=== PATIENT | female | born 1970 | race Caucasian/White ===

== ENCOUNTER 2021-01-02 17:02 | Observation (INO) ==
[2021-01-02] MEDS ORDERED: EPINEPHrine INJ 1 MG/ML AMP ONE (17:06)
[2021-01-02] MEDS ORDERED: FAMOTIDINE 20MG/5ML IV PUSH IV STA (17:09)
[2021-01-02] MEDS ORDERED: methylPREDNISolone 125 MG/2 ML VIAL IV STA (17:09)
[2021-01-02 17:29] LABS: Hematocrit (blood only) 38.8 % (37-47); Mean Corpuscular Hemoglobin 32.4 pg (25-34); Mean Corpuscular Hgb Conc 33.5 g/dL (32-36); Mean Corpuscular Volume 96.8 fL (80-100); Mean Platelet Volume 8.8 fL (7.4-10.4); Platelet Count 302 K/uL (130-400); RDW Coefficient of Variation 13.2 % (11.5-14.5); RDW Standard Deviation 46.9 fL (36.4-46.3); Red Blood Count 4.01 M/uL (4.2-5.4); White Blood Count 12.08 K/uL (4.8-10.8)
--- NOTE | 2021-01-02 17:38 | XRay Report ---
XR chest 1V portable CLINICAL HISTORY: Chest Pain COMPARISON STUDY: No previous studies for comparison. FINDINGS: No pneumothorax. No pleural effusion. No large infiltrates or consolidative lesions are seen. Cardiomediastinal silhouette is within normal limits in size. No significant pulmonary vascular congestion.. Osseous structures: unremarkable IMPRESSION: 1. No acute pulmonary process. ACT 112: Negative or not required by law. The above report was generated using voice recognition software. It may contain grammatical, syntax o r spelling errors. Electronically signed by: Sirisha Deng DO 01/02/2021 5:37 PM
[2021-01-02 17:39] LABS: Partial Thromboplastin Ratio 0.9; Partial Thromboplastin Time 22.9 Seconds (21.0-31.0)
[2021-01-02 17:47] LABS: Alanine Aminotransferase 17 U/L (12-78); Albumin Level 3.1 gm/dl (3.4-5.0); Aspartate Aminotransferase 16 U/L (15-37); BUN Creatinine Ratio 18.1 (10-20); Blood Urea Nitrogen 22 mg/dl (7-18); Calcium 8.5 mg/dl (8.5-10.1); Carbon Dioxide 22 mmol/L (21-32); Chloride 113 mmol/L (98-107); Est GFR (African American) 61.6 ml/min; Est GFR (Non-African American) 53.2 ml/min; Glucose 170 mg/dl (70-99); Lipase 141 U/L (73-393); Potassium 3.2 mmol/L (3.5-5.1); Sodium 141 mmol/L (136-145)
[2021-01-02 17:51] LABS: Alkaline Phosphatase 66 U/L (45-117); Bilirubin,Total 0.4 mg/dl (0.2-1); Total Protein 6.1 gm/dl (6.4-8.2); Troponin I < 0.015 ng/ml (0-0.045)
[2021-01-02 18:06] LABS: Basophils # (auto) 0.01 K/uL (0-0.2); Basophils % (auto) 0.1 %; Eosinophils # (auto) 0.07 K/uL (0-0.5); Eosinophils % (auto) 0.6 %; Immature Granulocytes # (auto) 0.02 K/uL (0.00-0.02); Immature Granulocytes % (auto) 0.2 %; Lymphocytes # (auto) 7.07 K/uL (1.2-3.4); Lymphocytes % (auto) 58.5 %; Monocytes # (auto) 0.31 K/uL (0.11-0.59); Monocytes % (auto) 2.6 %
--- NOTE | 2021-01-02 18:15 | Emergency Department Note ---
History of Present Illness General Chief complaint: Allergic Reaction Stated complaint: ALLERGIC REACTION Source: patient, EMS and old records reviewed Mode of arrival: EMS Limitations: no limitations History of Present Illness This patient is a 50-year-old female was brought in by EMS after having a bee sting and allergic reaction. She was placed in room B1. The nurses got me to see her immediately. When I went and she was very somnolent. She apparently was stung on the left lower lip about 1/2-hour or so prior to arrival they did give her epi IM. They also gave her Benadryl 50 mg IV and she had had 25 Benadryl prior to that. There are no steroids given. They feel that she is got more somnolent. The patient is sleepy and opens her eyes but falls back to sleep. Unable to give reliable history initially Home Medications Medication Instructions Recorded Confirmed Type acetaminophen 325 mg tablet 650 mg PO DIRECTED PRN 01/02/21 01/02/21 History (Tylenol) diphenhydramine HCl 25 mg capsule 25 mg PO DIRECTED PRN 01/02/21 01/02/21 History (Benadryl) Allergies Allergy/AdvReac Type Severity Reaction Status Date / Time No Known Allergies Allergy Verified 01/02/21 18:20 Past Med/Surg History Social History Smoking Status: Unknown if ever smoked Feels Safe at Home: Yes Immunizations: Past medical historydenies any significant past medical history Social historyher doctor retired she used to see Dr. Rosas Review of Systems Unobtainable due to reduced consciousness Physical Exam Vital Signs Vital Signs - 24 hr 01/02/21 17:07 01/02/21 17:13 01/02/21 17:20 Temperature Temperature Source Pulse Rate 107 H 100 H 89 Pulse Rate [Radial] Pulse Rate from SpO2 Sensor 107 H 99 H 90 Pulse Rhythm Pulse Strength Respiratory Rate 23 23 22 Respiratory Effort / Characteristics Respiratory Depth Respiratory Pattern Blood Pressure 102/60 104/67 95/66 L Blood Pressure [Left Arm] Blood Pressure Mean 74 79 75 Blood Pressure Mean [Left Arm] Blood Pressure Position Pulse Oximetry 95 93 96 Oxygen Delivery Method Non-rebreather Non-rebreather Non-rebreather Oxygen Flow Rate 15 15 15 Sepsis Recent Fever Within 48 Hours Sepsis New/Unexplained Change in Mental Status Sepsis Action Taken by Nursing 01/02/21 17:23 01/02/21 17:24 01/02/21 17:30 Temperature 37 C Temperature Source Oral Pulse Rate 106 H 71 Pulse Rate [Radial] Pulse Rate from SpO2 Sensor 79 Pulse Rhythm Regular Pulse Strength Normal Respiratory Rate 28 H 23 Respiratory Effort / Characteristics Short of Breath Non-Labored Spontaneous Respiratory Depth Shallow Normal Respiratory Pattern Tachypnea Regular Blood Pressure 102/60 114/72 Blood Pressure [Left Arm] Blood Pressure Mean 74 86 Blood Pressure Mean [Left Arm] Blood Pressure Position Sitting Pulse Oximetry 95 98 98 Oxygen Delivery Method Non-rebreather Oxymask Non-rebreather Oxygen Flow Rate 12 15 Sepsis Recent Fever Within 48 Hours No Sepsis New/Unexplained Change in Mental Status N/A Sepsis Action Taken by Nursing Physician Notified 01/02/21 17:32 01/02/21 17:41 01/02/21 17:51 Temperature Temperature Source Pulse Rate 80 101 H Pulse Rate [Radial] 76 Pulse Rate from SpO2 Sensor 76 93 H Pulse Rhythm Pulse Strength Respiratory Rate 18 23 15 Respiratory Effort / Characteristics Non-Labored Respiratory Depth Normal Respiratory Pattern Regular Blood Pressure 107/59 L 128/66 Blood Pressure [Left Arm] 104/72 Blood Pressure Mean 75 86 Blood Pressure Mean [Left Arm] 82 Blood Pressure Position Pulse Oximetry 97 99 96 Oxygen Delivery Method Non-rebreather Oxygen Flow Rate 15 Sepsis Recent Fever Within 48 Hours Sepsis New/Unexplained Change in Mental Status Sepsis Action Taken by Nursing 01/02/21 17:52 01/02/21 18:00 01/02/21 18:11 Temperature Temperature Source Pulse Rate 99 H 98 H Pulse Rate [Radial] 96 H Pulse Rate from SpO2 Sensor 97 H 98 H Pulse Rhythm Pulse Strength Respiratory Rate 16 18 24 Respiratory Effort / Characteristics Non-Labored Respiratory Depth Normal Respiratory Pattern Regular Blood Pressure 107/72 111/69 Blood Pressure [Left Arm] 128/65 Blood Pressure Mean 83 83 Blood Pressure Mean [Left Arm] 86 Blood Pressure Position Pulse Oximetry 97 100 100 Oxygen Delivery Method Non-rebreather Oxygen Flow Rate Sepsis Recent Fever Within 48 Hours Sepsis New/Unexplained Change in Mental Status Sepsis Action Taken by Nursing 01/02/21 18:23 01/02/21 18:31 01/02/21 18:41 Temperature Temperature Source Pulse Rate 78 67 76 Pulse Rate [Radial] Pulse Rate from SpO2 Sensor 81 77 76 Pulse Rhythm Pulse Strength Respiratory Rate 19 26 H 16 Respiratory Effort / Characteristics Respiratory Depth Respiratory Pattern Blood Pressure 89/69 L 111/62 Blood Pressure [Left Arm] Blood Pressure Mean 75 78 Blood Pressure Mean [Left Arm] Blood Pressure Position Pulse Oximetry 100 100 100 Oxygen Delivery Method Oxygen Flow Rate Sepsis Recent Fever Within 48 Hours Sepsis New/Unexplained Change in Mental Status Sepsis Action Taken by Nursing 01/02/21 18:50 01/02/21 19:00 01/02/21 19:02 Temperature Temperature Source Pulse Rate 88 98 H Pulse Rate [Radial] 91 H Pulse Rate from SpO2 Sensor 86 101 H Pulse Rhythm Pulse Strength Respiratory Rate 20 17 16 Respiratory Effort / Characteristics Respiratory Depth Respiratory Pattern Blood Pressure 125/68 80/56 L Blood Pressure [Left Arm] 108/75 Blood Pressure Mean 87 64 Blood Pressure Mean [Left Arm] 86 Blood Pressure Position Pulse Oximetry 100 98 98 Oxygen Delivery Method Nasal Cannula Oxygen Flow Rate 3 Sepsis Recent Fever Within 48 Hours Sepsis New/Unexplained Change in Mental Status Sepsis Action Taken by Nursing 01/02/21 19:10 01/02/21 19:20 01/02/21 19:30 Temperature Temperature Source Pulse Rate 93 H 93 H 86 Pulse Rate [Radial] Pulse Rate from SpO2 Sensor 90 94 H 87 Pulse Rhythm Pulse Strength Respiratory Rate 16 19 18 Respiratory Effort / Characteristics Respiratory Depth Respiratory Pattern Blood Pressure 115/75 108/75 121/76 Blood Pressure [Left Arm] Blood Pressure Mean 88 86 91 Blood Pressure Mean [Left Arm] Blood Pressure Position Pulse Oximetry 100 99 99 Oxygen Delivery Method Nasal Cannula Oxygen Flow Rate 3 Sepsis Recent Fever Within 48 Hours Sepsis New/Unexplained Change in Mental Status Sepsis Action Taken by Nursing 01/02/21 19:40 01/02/21 19:51 01/02/21 20:00 Temperature Temperature Source Pulse Rate 74 78 83 Pulse Rate [Radial] Pulse Rate from SpO2 Sensor 76 82 82 Pulse Rhythm Pulse Strength Respiratory Rate 17 17 17 Respiratory Effort / Characteristics Respiratory Depth Respiratory Pattern Blood Pressure 110/72 116/71 108/80 Blood Pressure [Left Arm] Blood Pressure Mean 84 86 89 Blood Pressure Mean [Left Arm] Blood Pressure Position Pulse Oximetry 98 97 97 Oxygen Delivery Method Nasal Cannula Nasal Cannula Nasal Cannula Oxygen Flow Rate 3 2 2 Sepsis Recent Fever Within 48 Hours Sepsis New/Unexplained Change in Mental Status Sepsis Action Taken by Nursing General: Well developed well nourished slender middle-aged female who is somnolent with oxygen on but in no acute respiratory. To stimuli she will open her eyes and go back to sleep. She has diffuse red rash mostly on her torso and extremities HEENT: Normal cephalic atraumatic. Pupils are equal round and reactive to light. Extraocular movements are intact. Oropharynx is pink with moist mucous membranes. No swelling of the mouth lips or tongue. The area she got stung on the lower lip is not secondarily swollen. The posterior pharynx is wide open without any swelling. The tongue is not swollen the cheeks and the rest of the mouth are not swollen. Neck: Supple with a midline trachea. No meningeal signs or stiffness, no JVD or bruits. No Stridor. Chest: Clear to auscultation bilaterally. No wheezes or rhonchi. No increased work of breathing. Heart: Regular rate and rhythm without murmurs or gallops. Abdomen: Soft nontender, nondistended without rebound guarding or rigidity. Extremities: No cyanosis clubbing or edema. No calf tenderness or assymetry Spine/Back. Non tender to palpation. No CVA tenderness Skin: Good turgor. Red diffuse rash on the skin Neurologic exam: Cranial nerves two through 12 are intact. Motor and sensation are intact and symmetrical throughout. Course Administered Medications Discontinued Medications Epinephrine HCl (Epinephrine Inj 1 Mg/Ml Amp) Confirm Administered Dose 1 mg .ROUTE .STK-MED ONE Stop: 01/02/21 17:07 Last Admin: 01/02/21 17:08 Dose: 0.3 mg Documented by: [id number] Famotidine (Famotidine 20mg/5ml Iv Push) 20 mg IV NOW STA Stop: 01/02/21 17:10 Last Admin: 01/02/21 17:14 Dose: 20 mg Documented by: [id number] Methylprednisolone (Methylprednisolone 125 Mg/2 Ml Vial) 125 mg IV NOW STA Stop: 01/02/21 17:10 Last Admin: 01/02/21 17:14 Dose: 125 mg Documented by: [id number] Critical Care Time Critical Care Time: Yes Total Critical Care Time: 45 Due to the patient's allergic reaction and need for multiple medications, frequent airway and vital sign reassessment and further treatment and evaluation and consultation, I have personally spent greater than 45 minutes of critical care time in the direct management of this patient. This includes bedside care, interpretation of diagnostic studies, and testing, discussion with consultants, patient, and family members, and other required patient management activities. This 45 minutes is in excess of all separately billable procedures. Medical Decision Making Differential Diagnosis Allergic reaction, anaphylaxis, airway compromise, medication side effect, respiratory distress Home Medications Current Medication List: was personally reviewed by me Laboratory Data Attestation: I reviewed the patient's lab results. Result diagrams: 01/02/21 17:19 01/02/21 17:19 Lab Results 01/02/21 01/02/21 01/02/21 Range/Units 17:10 17:19 17:19 WBC 12.08 H (4.8-10.8) K/uL RBC 4.01 L (4.2-5.4) M/uL Hgb 13.0 (12.0-16.0) g/dL Hct 38.8 (37-47) % MCV 96.8 (80-100) fL MCH 32.4 (25-34) pg MCHC 33.5 (32-36) g/dL RDW Std Deviation 46.9 H (36.4-46.3) fL RDW Coeff of Faustino 13.2 (11.5-14.5) % Plt Count 302 (130-400) K/uL MPV 8.8 (7.4-10.4) fL Immature Gran % (Auto) 0.2 % Neut % (Auto) 38.0 % Lymph % (Auto) 58.5 % [place] % (Auto) 2.6 % Eos % (Auto) 0.6 % Baso % (Auto) 0.1 % Neut # (Auto) 4.60 (1.4-6.5) K/uL Lymph # (Auto) 7.07 H (1.2-3.4) K/uL [place] # (Auto) 0.31 (0.11-0.59) K/uL Eos # (Auto) 0.07 (0-0.5) K/uL Baso # (Auto) 0.01 (0-0.2) K/uL Immature Gran # (Auto) 0.02 (0.00-0.02) K/uL APTT 22.9 (21.0-31.0) Seconds PTT Ratio 0.9 Sodium (136-145) mmol/L Potassium (3.5-5.1) mmol/L Chloride (98-107) mmol/L Carbon Dioxide (21-32) mmol/L Anion Gap (3-11) BUN (7-18) mg/dl Creatinine (0.6-1.2) mg/dl Est Cr Clr Drug Dosing Est GFR ( Amer) ml/min Est GFR (Non-Af Amer) ml/min BUN/Creatinine Ratio (10-20) Glucose (70-99) mg/dl POC Glucose 156 H (70-99) mg/dl Calcium (8.5-10.1) mg/dl Total Bilirubin (0.2-1) mg/dl AST (15-37) U/L ALT (12-78) U/L Alkaline Phosphatase (45-117) U/L Troponin I (0-0.045) ng/ml Total Protein (6.4-8.2) gm/dl Albumin (3.4-5.0) gm/dl Globulin (2.5-4.0) gm/dl Albumin/Globulin Ratio (0.9-2) Lipase (73-393) U/L COVID-19 Eval Order SARS-CoV-2 (PCR) (Negative) 01/02/21 01/02/21 01/02/21 Range/Units 17:19 18:40 18:40 WBC (4.8-10.8) K/uL RBC (4.2-5.4) M/uL Hgb (12.0-16.0) g/dL Hct (37-47) % MCV (80-100) fL MCH (25-34) pg MCHC (32-36) g/dL RDW Std Deviation (36.4-46.3) fL RDW Coeff of Faustino (11.5-14.5) % Plt Count (130-400) K/uL MPV (7.4-10.4) fL Immature Gran % (Auto) % Neut % (Auto) % Lymph % (Auto) % [place] % (Auto) % Eos % (Auto) % Baso % (Auto) % Neut # (Auto) (1.4-6.5) K/uL Lymph # (Auto) (1.2-3.4) K/uL [place] # (Auto) (0.11-0.59) K/uL Eos # (Auto) (0-0.5) K/uL Baso # (Auto) (0-0.2) K/uL Immature Gran # (Auto) (0.00-0.02) K/uL APTT (21.0-31.0) Seconds PTT Ratio Sodium 141 (136-145) mmol/L Potassium 3.2 L (3.5-5.1) mmol/L Chloride 113 H (98-107) mmol/L Carbon Dioxide 22 (21-32) mmol/L Anion Gap 6.0 (3-11) BUN 22 H (7-18) mg/dl Creatinine 1.19 (0.6-1.2) mg/dl Est Cr Clr Drug Dosing Not Reportable Est GFR ( Amer) 61.6 ml/min Est GFR (Non-Af Amer) 53.2 ml/min BUN/Creatinine Ratio 18.1 (10-20) Glucose 170 H (70-99) mg/dl POC Glucose (70-99) mg/dl Calcium 8.5 (8.5-10.1) mg/dl Total Bilirubin 0.4 (0.2-1) mg/dl AST 16 (15-37) U/L ALT 17 (12-78) U/L Alkaline Phosphatase 66 (45-117) U/L Troponin I < 0.015 (0-0.045) ng/ml Total Protein 6.1 L (6.4-8.2) gm/dl Albumin 3.1 L (3.4-5.0) gm/dl Globulin 3.0 (2.5-4.0) gm/dl Albumin/Globulin Ratio 1.0 (0.9-2) Lipase 141 (73-393) U/L COVID-19 Eval Order Covid19 at [facility] SARS-CoV-2 (PCR) NEGATIVE (Negative) Imaging Data Attestation: I personally reviewed and interpreted this imaging study as follo ws: My Impression: Chest x-rayno acute infiltrate, failure, pneumothorax seen Radiologist's Impression: Chest X-Ray 01/02/21 17:11 XR chest 1V portable CLINICAL HISTORY: Chest Pain COMPARISON STUDY: No previous studies for comparison. FINDINGS: No pneumothorax. No pleural effusion. No large infiltrates or consolidative lesions are seen. Cardiomediastinal silhouette is within normal limits in size. No significant pulmonary vascular congestion.. Osseous structures: unremarkable IMPRESSION: 1. No acute pulmonary process. ACT 112: Negative or not required by law. The above report was generated using voice recognition software. It may contain grammatical, syntax or spelling errors. Electronically signed by: Sirisha Deng DO 01/02/2021 5:37 PM ECG Data Attestation: I personally reviewed and interpreted this ECG as follows: Indication: + SOB/dyspnea Rhythm: + sinus tachycardia ECG Intervals/blocks: + Normal QRS, + Normal QT and + Normal NM ECG [place]: + Normal ECG ST segments: + Normal ST segments ECG Findings: no PACs or no PVCs Comparison ECG Date: no prior available MDM Narrative This patient comes in as described above. The nurse came and got me to see her as she was ill-appearing. She seemed very somnolent. She was given a second dose of epinephrine IM. She was also given Solu-Medrol 125 mg IV as well as Pepcid. She was observed in the ER and significantly improved. She was awake. I reevaluate her airway multiple times and she had no small of the mouth lips or tongue with exception of a small area in the left lower lip where she was stung there is no posterior oropharyngeal swelling stridor or wheezes. Blood work was unremarkable x-ray was unremarkable. She was given IV fluid boluses and she improved significantly I do think she needs the observed in the hospital given her significant allergic reaction that required 2 doses of epinephrine. The patient's mental status improved and she remained stable she had no airway issues chest pain shortness of breath or abdominal pain. [facility] for these measures. Continuous cardiac monitoring: Orders placed in EMR for continuous cardiac monitoring. Upon my interpretation the patient was noted to be in sinus tachycardia with a weight of 105. Impression & Plan Allergic reaction, Anaphylaxis, Bee sting, Lab test negative for COVID-19 virus Discharge Plan Visit Data Chief Complaint: Allergic Reaction Stated Complaint: ALLERGIC REACTION ED Provider: Sedrick Arzate Discharge Problem: Allergic reaction, Anaphylaxis, Bee sting, Lab test negative for COVID-19 virus Forms Stand Alone Forms: My [facility] Prescriptions Prescriptions: No Action acetaminophen [Tylenol] 325 mg Tablet 650 mg PO DIRECTED PRN (Reason: Pain) RF: 0 diphenhydramine HCl [Benadryl] 25 mg Capsule 25 mg PO DIRECTED PRN (Reason: Allergic Reaction) RF: 0 Referrals Referrals: Pablo Weiss [Staff Physician] - Discharge Problem: Allergic reaction Qualifiers: Encounter type: initial encounter Qualified Code(s): T78.40XA - Allergy, unspecified, initial encounter Anaphylaxis Qualifiers: Encounter type: initial encounter Qualified Code(s): T78.2XXA - Anaphylactic shock, unspecified, initial encounter Bee sting Qualifiers: Encounter type: initial encounter Injury intent: accidental or unintentional Qualified Code(s): T63.441A - Toxic effect of venom of bees, accidental (unintentional), initial encounter
[2021-01-02] MEDS ORDERED: ACETAMINOPHEN 325 MG TAB PO STA (18:31)
--- NOTE | 2021-01-02 20:13 | History & Physical Report ---
Date of Service January 02, 2021 Assessment & Plan (1) Anaphylaxis: Plan: Patient is a 50 year old female who denies any PMHx that presents after SOB shortly after a bee sting to her L lower lip requiring PO Benadryl 25mg IV Benadryl 50mg, and epinephrine injection en-route to the ED. Anaphylaxis secondary to bee sting -Allergic reaction with suspected anaphylaxis to bee venom while at work -Received IV epinephrine x2, PO Benadryl 25mg x1, IV Benadryl 50mg x1, IV Famotidine 20mg x1, IV Methylprednisolone 125mg x1 -Will continue on Methylprednisolone 60mg q8h -PRN Benadryl for worsening symptoms -Continue Famotidine 20mg BID Hx Alcohol use disorder -Alcohol use history of 6 pack daily -Last drink 1:30AM on 01/01/21 -Will place on AWSS protocol with ativan pushes PRN -If requiring multiple doses of IV ativan will consider scheduled treatment -B12 and Folate levels Nicotine Dependance -Consider nicotine patch PRN Hypokalemia -K 3.2 on admission -Will give 20meq KCl now -IVF with NSS +20meq KCl x1L Dispo: Med/Surg telemetry for monitoring post epinephrine use for anaphylaxis FEN: NSS +20meq KCl x1L, Regular diet DVT: SCDs Code: Full History of Present Illness Chief Complaint: bee sting Primary Care Provider: NO PCP Patient is a 50 year old female who denies any PMHx that presents after SOB shortly after a bee sting to her L lower lip requiring PO Benadryl 25mg IV Benadryl 50mg, and epinephrine injection en-route to the ED. Patient note that she was at work when she was stung by a bee on her bottom L lip around 4PM. She noted immediate pain and swelling, but became more worried when she started feeling more short of breath and nauseous. She states that her boss gave her a Benadryl tablet immediately and EMS services were called. She as given Benadryl 50mg IV and an epinephrine injection on the EMS ride to the ED. In the ED patient received a second epinephrine injection in addition to solu-medrol 125mg IV and 20mg IV pepcid. Patient denies any history of allergy to bees. She currently notes that she primarily feels sleepy and slightly nauseous, however, she has no issues with her breathing. Denies any fever, chills, SOB, chest pain, chest pressure, abdominal pain. Med Hx: None per patient Surg Hx: Vocal cord polyp removal Soc Hx: Notes smoking 1 PPD x30 years, Drinks roughly a 6pack of beer daily, Uses marijuana, crystal meth, and cocaine. Last marijuana use 2PM. Last Crystal meth use overnight. Last cocaine use 4-5 years ago. Notes alcohol withdrawal once in 2007 when she was in retirement - no seizures or DTs at that time. Allergies Allergy/AdvReac Type Severity Reaction Status Date / Time bee venom protein (honey bee) Allergy Severe Anaphylaxis Verified 01/02/21 21:10 Home Medications Medication Instructions Recorded Confirmed Type acetaminophen 325 mg tablet 650 mg PO DIRECTED PRN 01/02/21 01/02/21 History (Tylenol) diphenhydramine HCl 25 mg capsule 25 mg PO DIRECTED PRN 01/02/21 01/02/21 History (Benadryl) epinephrine 0.3 mg/0.3 mL 0.3 mg IM Q4H PRN #2 ea 01/03/21 Rx injection, auto-injector (EpiPen 2-Clay) prednisone 10 mg tablets in a dose 10 mg PO DIRECTED #21 ea 01/03/21 Rx pack Past Med/Surg History Social History Smoking Status: Current every day smoker Second Hand Exposure: No; Do You Dip or Chew Tobacco: No; Tobacco Cessation Education Requested by Patient: No Hx Alcohol Use: Yes Alcohol type: beer Hx Substance Use: Yes Preferred Language: Mohawk Communication Ability: Effective Industrial 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 Beliefs That Will Affect Care: None Current Living Situation: Spouse Other Information That Helps Us Care for You: No Feels Safe at Home: Yes Safety Concerns: Feels Safe At This Time Assistive Devices: None Review of Systems Review of Systems: All systems reviewed & are unremarkable except as noted in Subjective Physical Exam Constitutional: well developed and well nourished; no acute distress Tired appearing, but responsive and alert when spoken to Eyes: PERRL, conjunctivae normal, anicteric sclerae ENMT: external ear and nose normal, oropharynx normal Mouth: + lip abnormality (swelling of L lower lip ) and + poor dentition Neck: trachea midline, no thyromegaly Respiratory: normal respiratory effort; no respiratory distress Auscultation: lungs clear to auscultation bilaterally; no wheezes Cardiovascular: RRR, no murmur, no edema Gastrointestinal (Abdomen): normal bowel sounds, soft, nontender, no hepatosplenomegaly Musculoskeletal: no cyanosis or clubbing, extremities motor strength 5/5 Skin: no rashes, warm and dry Neurologic: PERRL, EOMI, accommodation nl, no face palsy, no dysarthria Psychiatric: A+Ox3, euthymic affect Results & Data Results & Data ([facility]) Vital Signs (Past 12 Hours) Vital Signs Temp Pulse Pulse Resp BP BP Pulse Ox 01/02/21 20:00 83 17 108/80 97 01/02/21 19:51 78 17 116/71 97 01/02/21 19:40 74 17 110/72 98 01/02/21 19:30 86 18 121/76 99 01/02/21 19:20 93 H 19 108/75 99 01/02/21 19:10 93 H 16 115/75 100 01/02/21 19:02 98 H 16 80/56 L 98 01/02/21 19:00 91 H 17 108/75 98 01/02/21 18:50 88 20 125/68 100 01/02/21 18:41 76 16 111/62 100 01/02/21 18:31 67 26 H 89/69 L 100 01/02/21 18:23 78 19 100 01/02/21 18:11 98 H 24 111/69 100 01/02/21 18:00 99 H 18 107/72 100 01/02/21 17:52 96 H 16 128/65 97 01/02/21 17:51 101 H 15 128/66 96 01/02/21 17:41 80 23 107/59 L 99 01/02/21 17:32 76 18 104/72 97 01/02/21 17:30 71 23 114/72 98 01/02/21 17:24 37 C 106 H 28 H 102/60 98 01/02/21 17:23 95 01/02/21 17:20 89 22 95/66 L 96 01/02/21 17:13 100 H 23 104/67 93 01/02/21 17:07 107 H 23 102/60 95 Supervising Physician Co-Signing Physician Notes Attending addendum: I have physically seen this patient, have supervised the medical residents activities, and agree with the H&P unless as otherwise noted. Assessment and Plan: Anaphylaxis secondary to bee sting- Status post epinephrine IV, p.o. Benadryl, IV Benadryl, IV famotidine and IV Solu-Medrol continue Solu-Medrol 60 mg IV every 8 hours Benadryl 25 mg IV every 4 hours as needed Famotidine 20 mg IV twice daily Alcohol use disorder- AWSS protocol with IV Ativan Thiamine 100 mg p.o. daily Folic acid 1 mg p.o. daily Remaining orders and notations as noted Resident Activity Tracking Resident Involvement: Resident Care Provided Care Provided: Adult Hospital Medicine (1) Anaphylaxis Encounter type: initial encounter Qualified Code(s): T78.2XXA - Anaphylactic shock, unspecified, initial encounter
[2021-01-02] MEDS ORDERED: methylPREDNISolone 125 MG/2 ML VIAL IV SCH (20:21)
[2021-01-02] MEDS ORDERED: POTASSIUM CHLORIDE CRTAB 20 MEQ TABCR PO STA (20:21)
[2021-01-02] MEDS ORDERED: diphenhydrAMINE 50 MG/ML VIAL IV PRN (23:44)
[2021-01-02] MEDS ORDERED: LORazepam 2 MG/4 ML VIAL IV PRN (23:44)
[2021-01-02] MEDS ORDERED: ONDANSETRON INJ 2 MG/ML 2 ML VIAL IV PRN (23:44)
[2021-01-02] MEDS ORDERED: LORazepam 3 MG/6 ML VIAL IV PRN (23:44)
[2021-01-02] MEDS ORDERED: LORazepam 1 MG/2 ML VIAL IV PRN (23:44)
[2021-01-02] MEDS ORDERED: ATIVAN IV ALCOHOL WITHDRAWL IV PRN (23:44)
[2021-01-03] MEDS ORDERED: D5NSS + 20MEQ KCL 20 MEQ/1,000 ML BAG IV SCH
[2021-01-03 00:57] LABS: Folate (Folic Acid) 14.9 ng/ml (>5.38)
[2021-01-03] MEDS: FAMOTIDINE 20 MG in SYRINGE 3 ML IV SCH ×2 (01:23→08:55)
[2021-01-03] MEDS: NSS + 20MEQ KCL 20 MEQ/1,000 ML BAG IV SCH ×2 (03:09→03:53)
[2021-01-03] MEDS: PATIENT'S HEIGHT NEEDED SCH ×3 (03:12→06:18)
[2021-01-03] MEDS ORDERED: methylPREDNISolone 60 MG in SYRINGE 0 ML IV SCH (04:00)
[2021-01-03 04:09] LABS: Amphetamines+Metham, Urine Pos (Neg); Barbiturates, Urine Neg (Neg); Benzodiazepine, Urine Neg (Neg); Cocaine, Urine Neg (Neg); MDMA (Ecstacy), Urine Pos (Neg); Methadone, Urine Neg (Neg); Opiate, Urine Neg (Neg); Phencyclidine, Urine Neg (Neg)
[2021-01-03 06:53] LABS: Hematocrit (blood only) 36.5 % (37-47); Hemoglobin 12.3 g/dL (12.0-16.0); Immature Granulocytes # (auto) 0.04 K/uL (0.00-0.02); Immature Granulocytes % (auto) 0.3 %; Lymphocytes # (auto) 0.92 K/uL (1.2-3.4); Mean Corpuscular Hemoglobin 32.9 pg (25-34); Mean Corpuscular Hgb Conc 33.7 g/dL (32-36); Mean Corpuscular Volume 97.6 fL (80-100); Mean Platelet Volume 8.8 fL (7.4-10.4); Monocytes # (auto) 0.12 K/uL (0.11-0.59); Monocytes % (auto) 0.8 %; Neutrophils # (auto) 14.23 K/uL (1.4-6.5); Neutrophils % (auto) 92.9 %; Platelet Count 259 K/uL (130-400); RDW Coefficient of Variation 13.3 % (11.5-14.5); RDW Standard Deviation 47.2 fL (36.4-46.3); Red Blood Count 3.74 M/uL (4.2-5.4); White Blood Count 15.31 K/uL (4.8-10.8)
[2021-01-03 07:17] LABS: BUN Creatinine Ratio 16.8 (10-20); Calcium 8.9 mg/dl (8.5-10.1); Creatinine Clr Calc Pharmacy 49.3 ml/min; Est GFR (African American) 73.4 ml/min; Est GFR (Non-African American) 63.3 ml/min
[2021-01-03 07:19] LABS: Albumin Globulin Ratio 0.9 (0.9-2); Bilirubin,Total 0.4 mg/dl (0.2-1); Globulin 3.2 gm/dl (2.5-4.0); Total Protein 6.2 gm/dl (6.4-8.2)
--- NOTE | 2021-01-03 07:28 | Electrocardiogram Report ---
Test Reason : Blood Pressure : / mmHG Vent. Rate : 101 BPM Atrial Rate : 101 BPM P-R Int : 152 ms QRS Dur : 084 ms QT Int : 378 ms P-R-T Axes : 000 082 060 degrees QTc Int : 490 ms Poor data quality, interpretation may be adversely affected Sinus tachycardia Otherwise normal ECG No previous ECGs available Confirmed by Rj Gill ([id number] on 01/03/2021 7:27:53 AM Referred By: REFERRED SELF Confirmed By:Emiliano Gill
[2021-01-03 11:26] VITALS: TEMP 98.6; O2SAT 91
[2021-01-03 12:09] VITALS: BP 108/75; PULSE 91
--- NOTE | 2021-01-03 14:35 | Discharge Summary ---
Date of Service January 03, 2021 Admission HPI Per Admitting Provider Patient is a 50 year old female who denies any PMHx that presents after SOB shortly after a bee sting to her L lower lip requiring PO Benadryl 25mg IV Benadryl 50mg, and epinephrine injection en-route to the ED. Patient note that she was at work when she was stung by a bee on her bottom L lip around 4PM. She noted immediate pain and swelling, but became more worried when she started feeling more short of breath and nauseous. She states that her boss gave her a Benadryl tablet immediately and EMS services were called. She as given Benadryl 50mg IV and an epinephrine injection on the EMS ride to the ED. In the ED patient received a second epinephrine injection in addition to solu-medrol 125mg IV and 20mg IV pepcid. Patient denies any history of allergy to bees. She currently notes that she primarily feels sleepy and slightly nauseous, however, she has no issues with her breathing. Denies any fever, chills, SOB, chest pain, chest pressure, abdominal pain. Med Hx: None per patient Surg Hx: Vocal cord polyp removal Soc Hx: Notes smoking 1 PPD x30 years, Drinks roughly a 6pack of beer daily, Uses marijuana, crystal meth, and cocaine. Last marijuana use 2PM. Last Crystal meth use overnight. Last cocaine use 4-5 years ago. Notes alcohol withdrawal once in 2007 when she was in [facility] - no seizures or DTs at that time. Principal Diagnosis 1. 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 Leukocytosis- likely steroid induced. No evidence of infection Discharge Exam General: Resting comfortably in her hosptial bed. NAD. HEENT: no residual evidence of lip/tongue swelling. Neck: No JVD. Negative hepatojugular reflex Cardiac: RRR without M/G/R Lungs: breathing comfortable on RA. CTA without W/R/R Abdomen: Normoactive X4. Soft and nontender in all quadrants. Extremities: No peripheral clubbing cyanosis or edema Neuro: A&O X4 cranial nerves II through XII are grossly intact no focal neuro deficits Skin: No obvious skin lesions or rashes Discharge Data Allergies Allergy/AdvReac Type Severity Reaction Status Date / Time bee venom protein (honey bee) Allergy Severe Anaphylaxis Verified 01/02/21 21:10 Consultations 01/02/21 19:32 ED Decision to Admit Stat Hospital Course (1) Anaphylaxis: * from bee sting * treated with Epi x2, benadryl PO and IV, Pepcid IV and Methylprednisolone * kept overnight for monitoring * patient doing well with no further evidence of anaphylaxis * will D/C to home with continued treatment to prevent reoccurrence (tapering course of predisone, pepcic 20mg bid x 1 week and claritin or zyrtec daily x 1 week. May also use Benadryl prn) * D/C with epiPen and lengthy discussion on how it's used (and to educate family/friends in the event that it may be needed and patient not responsive enough to use it) * follow up with PCP: 7-10 days. Return to the ED for new or worsening symptoms (2) Bee sting: * see above Total Time Total Time Spent Total Time Spent (In Minutes): 25 Discharge Plan Discharge Items Patient Disposition: Home - Self-Care Reason For Visit: ANAPHYLAXIS Discharge Diagnosis: 1. Anaphylaxis to Bee Sting Activity: Resume your previous activity Non-emergency contact: Primary Care Provider Call non-emergency contact if: you have any medication questions Follow-up/Referrals: PCP,NO [Primary Care Provider] - Diet: Regular Addtl Attending Provider Instructions: - you were brought to the ED for an anaphylactic reaction related to a bee sting - you responded favorably to medication provided and were kept overnight for close monitoring - at this time, no subsequent reaction has been identified - you will be discharged with a tapering course of prednisone to take over the next week (to prevent reoccurrence) - in addition, recommend that you take zyrtec 10mg every morning (or claritin 10mg)- these are both over the counter and pepcid 20mg twice a day (generic of these would be fine). Take x1 week - can use Benadryl as needed (will cause drowsiness) - You are being sent home with an EpiPen (to use in the event of further bee stings/reactions). It is improtant that you teach those that you live with how to use this in the event that you are inconscious and unable - follow up with your PCP: 7-10 days - return to the ED for new or worsening symptoms Pending Studies at Discharge: No Stand-Alone Forms: My [facility], Smoking Cessation Medications and DC Order Prescriptions: New epinephrine [EpiPen 2-Clay] 0.3 mg/0.3 mL auto-injector 0.3 mg IM Q4H PRN (Reason: anaphylaxis) Qty: 2 RF: 0 prednisone 10 mg tablets,dose pack 10 mg PO DIRECTED Qty: 21 RF: 0 Continued acetaminophen [Tylenol] 325 mg Tablet 650 mg PO DIRECTED PRN (Reason: Pain) RF: 0 diphenhydramine HCl [Benadryl] 25 mg Capsule 25 mg PO DIRECTED PRN (Reason: Allergic Reaction) RF: 0 Discharge Orders: Discharge Order (Routine); Ordered 01/03/21 Ordered By: Chichi Wolfe/Other Patient Handouts: Using an Epinephrine Autoinjector, ED Anaphylaxis Admission Data Admit Date/Time: 01/02/21 20:21 Attending Provider: Juwan Mendosa Admit Provider: Denys Keyes Primary Care Provider: PCP,NO Other Providers: Juwan Mendosa Other Interventions: Discharge Summary Assessment (RN) Last Done: 01/03/21 12:08 Supervising Physician Co-Signing Physician Notes I supervised Chichi Uribe PA-C on the care of this patient. I interviewed and examined the patient independently of her. The plan is as written in her note except for any following changes/exceptions: None Doing well today. No signs/symptoms of anaphylaxis. Encourage to adhere to the discharge regimen to avoid rebound anaphylaxis. Ready for discharge. Coding Level of Care Code D/C DAY MANAGEMENT <30 MINS Diagnoses Anaphylaxis T78.2XXA Encounter type: initial encounter Bee sting T63.441A Encounter type: initial encounter Injury intent: accidental or unintentional Time Spent (min) 35
--- NOTE | 2021-01-03 23:53 | Billing Data ---
Date of Service January 03, 2021 Coding Level of Care Code INT OBSERVATION CARE 70M LVL 3
[2021-01-07 09:35] LABS: Amphetamine Urine, Confirm 4740 ng/mL (<250); MDA negative; MDEA negative; MDMA (Ecstasy) Urine, Confirm negative; Marijuana Quant, GCMS Urine 42 ng/mL (<5); Methamphetamine, Ur Confirm >15000 ng/mL (<250)
== END 2021-01-03 13:25 | disposition home or self-care (01) ==
LOC: ED 17:02 → 2W 17:02 → SUATTDRO 20:21 → 2W 21:48